=== PATIENT | female | born 1990 | race Caucasian/White ===

== ENCOUNTER 2023-04-21 13:25 | Emergency (ER) | payer SELFPAY ==
[2023-04-21] MEDS ORDERED: Ibuprofen 200 MG TAB ONE (14:06)
== END 2023-04-21 14:30 | disposition home or self-care (01) ==
LOC: NAV ERS 13:25
DX: S67.190A Crushing injury of right index finger, initial encounter (principal); W23.1XXA Caught, crushed, jammed, or pinched between stationary objects, initial encounter